=== PATIENT | male | born 1990 | race Caucasian/White ===

== ENCOUNTER 2020-01-03 15:31 | Outpatient (REF) | payer OTHER, SELFPAY ==
[2020-01-04 21:32] LABS: Lyme Abs Screen <0.90 index
== END 2020-01-03 15:32 | disposition home or self-care (01) ==
LOC: HO.LAB 15:31
PROVIDERS: Visit Provider Emergency Medicine
DX: M25.50 Pain in unspecified joint (principal)
CPT/HCPCS: 86618